=== PATIENT | male | born 1960 | race Caucasian/White ===

== ENCOUNTER 2016-03-03 10:05 | Emergency (ER) | payer MEDICARE, MEDICAID ==
[2016-03-03 10:30] VITALS: BP 129/86
--- NOTE | 2016-03-03 11:37 | UC ---
Skin Complaint HPI - HPI Summary HPI Summary: patient was treated with hydrocortisone for a contact dermatitis on his abdomen. it has improved but not gone away. it started when he switched body wash. - History of Current Complaint Chief Complaint: UCRash Time Seen by Provider: 03/03/16 11:25 Stated Complaint: RASH Hx Obtained From: Patient Onset/Duration: Gradual Onset, Lasting Days Skin Exposure Onset/Duration: Weeks Ago Timing: Constant Onset Severity: Mild Current Severity: Mild Pain Intensity: 4 Pain Scale Used: 0-10 Numeric Location: Discrete - abdomen Character: Pruritus, Hives, Redness, Raised Aggravating: Nothing Alleviating: Nothing Associated Signs & Symptoms: Positive: Negative Related History: Possible Reaction to: Environmental Exposure - Allergy/Home Medications Allergies/Adverse Reactions: Allergies Allergy/AdvReac Type Severity Reaction Status Date / Time No Known Allergies Allergy Verified 03/03/16 10:30 Home Medications: Home Medications Dasatinib [Sprycel] 100 mg PO DAILY 03/03/16 [History Confirmed 03/03/16] Review of Systems Constitutional: Negative Skin: Rash Eyes: Negative ENT: Negative Respiratory: Negative Cardiovascular: Negative Gastrointestinal: Negative Genitourinary: Negative Motor: Negative Neurovascular: Negative Musculoskeletal: Negative Neurological: Negative Psychological: Negative All Other Systems Reviewed And Are Negative: Yes PMH/Surg Hx/FS Hx/Imm Hx Previously Healthy: Yes - Surgical History Surgical History: None - Family History Known Family History: Positive: Blood Disorder - leukemia - Social History Alcohol Use: None Substance Use Type: None Smoking Status (MU): Never Smoked Tobacco Physical Exam Triage Information Reviewed: Yes Appearance: No Pain Distress, Well-Nourished, Pain Distress Vital Signs: Initial Vital Signs Temp 98.9 F 03/03/16 10:22 Pulse 81 03/03/16 10:22 Resp 16 03/03/16 10:22 BP 129/86 03/03/16 10:22 Pulse Ox 99 03/03/16 10:22 Vital Signs Reviewed: Yes Eye Exam: Normal Eyes: Positive: Conjunctiva Clear ENT Exam: Normal ENT: Positive: Normal ENT inspection, Pharynx normal, TMs normal Dental Exam: Normal Neck exam: Normal Neck: Positive: Supple, Nontender, No Lymphadenopathy Respiratory Exam: Normal Respiratory: Positive: Chest non-tender, Lungs clear, Normal breath sounds Cardiovascular Exam: Normal Cardiovascular: Positive: RRR, No Murmur, Pulses Normal Abdominal Exam: Normal Abdomen Description: Positive: Nontender, No Organomegaly, Soft Bowel Sounds: Positive: Present Musculoskeletal Exam: Normal Musculoskeletal: Positive: Strength Intact, ROM Intact, No Edema Neurological Exam: Normal Neurological: Positive: Alert Psychological Exam: Normal Skin: Positive: rashes - red raised area on abdomen Course/Dx - Course Course Of Treatment: history obtained, exam performed, medication reviewed, medication prescribed. - Differential Diagnoses - Skin Complaint Differential Diagnoses: Cellulitis, Contact Dermatitis, Urticaria - Diagnoses Provider Diagnoses: contact dermatitis Discharge - Discharge Plan Condition: Stable Disposition: HOME Patient Education Materials: Contact Dermatitis (ED)
== END 2016-03-03 11:41 | disposition home or self-care (01) ==
LOC: UCCORT 10:05
DX: L25.9 Unspecified contact dermatitis, unspecified cause (principal)
CPT/HCPCS: 99202; G0463

== ENCOUNTER 2016-03-31 20:57 | Emergency (ER) | payer MEDICARE, MEDICAID ==
[2016-03-31 21:14] VITALS: BP 158/87
[2016-03-31] MEDS ORDERED: Sulfamethox/Trimethoprim DS 800/160* TAB PO ONE (21:36)
--- NOTE | 2016-03-31 21:43 | UC ---
Skin Complaint HPI - HPI Summary HPI Summary: tender reddened area in suprapubic region. He has been battling an itchy rash on lower abdomen for hte past few months. Was seen here last month, dx contact dermatitis, Rx triamcinolone cream which did seem to help. Rash returned. It's itchy. Gradual worsening with redness and pain and swelling in suprapubic area. - History of Current Complaint Chief Complaint: UCRas Time Seen by Provider: 03/31/16 21:28 Stated Complaint: RASH Hx Obtained From: Patient Onset/Duration: Gradual Onset, Lasting Weeks - 1 Timing: Constant Onset Severity: Mild Current Severity: Moderate Location: Other - suprapubic Character: Swelling, Pain, Redness, Raised Aggravating: Touch Alleviating: Nothing Associated Signs & Symptoms: Positive: Negative - Allergy/Home Medications Allergies/Adverse Reactions: Allergies Allergy/AdvReac Type Severity Reaction Status Date / Time No Known Allergies Allergy Verified 03/31/16 21:14 Review of Systems Constitutional: Negative Skin: Rash - lower abdomen; worsened in suprapubic area and is now painful and red Eyes: Negative ENT: Negative Respiratory: Negative Cardiovascular: Negative Gastrointestinal: Negative Genitourinary: Negative Motor: Negative Neurovascular: Negative Musculoskeletal: Negative Neurological: Negative Psychological: Negative All Other Systems Reviewed And Are Negative: Yes PMH/Surg Hx/FS Hx/Imm Hx - Additional Past Medical History Additional PMH: chronic myeloid leukemia, in remission, on Sprycell for 2 years. Sees Oncologist at end of April - Surgical History Surgical History: None - Family History Known Family History: Positive: Hypertension, Blood Disorder - leukemia - Social History Occupation: Employed Full-time Lives: With Family Alcohol Use: None Substance Use Type: None Smoking Status (MU): Never Smoked Tobacco - Immunization History Most Recent Influenza Vaccination: none Physical Exam Triage Information Reviewed: Yes Appearance: Well-Appearing, No Pain Distress, Well-Nourished Vital Signs: Initial Vital Signs Temp 99.1 F 03/31/16 21:08 Pulse 90 03/31/16 21:08 Resp 18 03/31/16 21:08 BP 158/87 03/31/16 21:08 Pulse Ox 98 03/31/16 21:08 Vital Signs Reviewed: Yes Eye Exam: Normal ENT Exam: Normal Neck exam: Normal Respiratory Exam: Normal Cardiovascular Exam: Normal Musculoskeletal Exam: Normal Neurological Exam: Normal Psychological Exam: Normal Skin Exam: Other - dots of rash on lower abdomen, nondescript slightly raised red bumps. Indurated, red, hot, tender 3cm x 6 cm area suprapubic. No drainage. Course/Dx - Course Course Of Treatment: Sprycell has a common side effect of rash, asked to check with his Oncologist about whether his ongoing abdominal rash could be due to his Sprycell. The suprapubic area is consistent with cellulitis, but probably started from scratching this rash - Differential Diagnoses - Skin Complaint Differential Diagnoses: Cellulitis, Drug Rash - Diagnoses Provider Diagnoses: cellulitis Discharge - Discharge Plan Condition: Stable Disposition: HOME Prescriptions: Sulfamethox/Trimethoprim DS* [Bactrim DS 800/160 TAB*] 1 tab PO BID #20 tab Triamcinolone 0.1% OINT(NF) [Kenolog 0.1% OINT(NF)] 1 applic TOPICAL BID PRN #1 tube PRN Reason: Rash Patient Education Materials: Cellulitis (ED) Additional Instructions: You have a skin infection called "cellulitis". It is usually caused by Staph germs which get under the skin through a cut or open sore. It is likely that the rash you have had on your abdomen was the way the germs got under the skin. Sprycell has a very common side effect of rash. Please ask your Oncologist if the rash you have been experiencing could be due to the Sprycell.
== END 2016-03-31 21:49 | disposition home or self-care (01) ==
LOC: UCCORT 20:57
DX: L03.311 Cellulitis of abdominal wall (principal); C92.11 Chronic myeloid leukemia, BCR/ABL-positive, in remission
CPT/HCPCS: 99212; A9270-GY; G0463

== ENCOUNTER 2016-04-02 08:10 | Emergency (ER) | payer MEDICARE, MEDICAID ==
[2016-04-02 08:33] VITALS: BP 148/78
[2016-04-02] MEDS ORDERED: Ibuprofen TAB* 400 MG PO ONE (08:34)
--- NOTE | 2016-04-02 08:39 | UC ---
Skin Complaint HPI - HPI Summary HPI Summary: rash for a few days now developing abscess above penis. has been 2 days on Bactrim and rash and pain are worsening - History of Current Complaint Chief Complaint: UCRash Time Seen by Provider: 04/02/16 08:18 Stated Complaint: RASH RE-CHECK Hx Obtained From: Patient Onset/Duration: Sudden Onset, Lasting Days, Worse Since - yesterday Timing: Constant Onset Severity: Mild Current Severity: Moderate Pain Intensity: 7 Pain Scale Used: 0-10 Numeric Location: Discrete - lower abdomen/pubic area around penis Character: Swelling, Pain, Redness, Raised Aggravating: Touch Alleviating: Nothing Associated Signs & Symptoms: Positive: Tenderness - Allergy/Home Medications Allergies/Adverse Reactions: Allergies Allergy/AdvReac Type Severity Reaction Status Date / Time No Known Allergies Allergy Verified 04/02/16 08:29 Review of Systems Constitutional: Fever - 100.1 this am Skin: Rash - cellulitis developing abscess Eyes: Negative ENT: Negative Respiratory: Negative Cardiovascular: Negative Gastrointestinal: Negative Genitourinary: Negative Motor: Negative Neurovascular: Negative Musculoskeletal: Negative Neurological: Negative Psychological: Negative All Other Systems Reviewed And Are Negative: Yes PMH/Surg Hx/FS Hx/Imm Hx Previously Healthy: No - leukemia 2 years in remission, substance abuse disorder 30 years in remissi - Surgical History Surgical History: None - Family History Known Family History: Positive: Hypertension, Blood Disorder - leukemia - Social History Occupation: Unemployed Lives: With Family Alcohol Use: None Substance Use Type: None Smoking Status (MU): Former Smoker - Immunization History Most Recent Influenza Vaccination: none Physical Exam Triage Information Reviewed: Yes Appearance: Well-Appearing, Well-Nourished, Pain Distress - mild/moderate Vital Signs: Initial Vital Signs Temp 100.1 F 04/02/16 08:20 Pulse 98 04/02/16 08:20 Resp 18 04/02/16 08:20 BP 148/78 04/02/16 08:20 Vital Signs Reviewed: Yes Eye Exam: Normal Eyes: Positive: Conjunctiva Clear ENT Exam: Normal ENT: Positive: Normal ENT inspection, Hearing grossly normal. Negative: Nasal congestion, Nasal drainage, Trismus, Muffled/hoarse voice Neck exam: Normal Neck: Positive: Supple, Nontender Respiratory Exam: Normal Respiratory: Positive: Chest non-tender, No respiratory distress, No accessory muscle use Cardiovascular Exam: Normal Cardiovascular: Positive: RRR, Pulses Normal, Brisk Capillary Refill Musculoskeletal Exam: Normal Musculoskeletal: Positive: Strength Intact, ROM Intact, Edema @ - swelling erythema pubic area and lower abdomen Neurological Exam: Normal Neurological: Positive: Alert, Muscle Tone Normal Psychological Exam: Normal Skin: Positive: Other - cellulitis abscess as described Course/Dx - Course Course Of Treatment: to [facility] for higher level of care - Differential Diagnoses - Skin Complaint Differential Diagnoses: Abscess, Cellulitis - Diagnoses Provider Diagnoses: Cellulitis, adscess out patient treatment failure - Physician Notification/Consults Discussed Patient Care With: Ernestina FOY Time Discussed With Above Provider: 08:40 Instructed by Provider To: Transfer Discharge - Discharge Plan Condition: Fair Disposition: AGAINST MEDICAL ADVICE
[2016-04-02] MEDS ORDERED: Ibuprofen TAB* 400 MG ONE (08:47)
== END 2016-04-02 08:40 | disposition left against medical advice (07) ==
LOC: UCCORT 08:10
DX: L03.311 Cellulitis of abdominal wall (principal); C95.91 Leukemia, unspecified, in remission; Z87.891 Personal history of nicotine dependence; Z87.898 Personal history of other specified conditions
CPT/HCPCS: 99213; A9270-GY; G0463

== ENCOUNTER 2016-05-21 07:02 | Emergency (ER) | payer MEDICARE, MEDICAID ==
[2016-05-21 07:16] VITALS: BP 158/86
[2016-05-21] MEDS ORDERED: Albuterol 2.5 MG/3 ML NEB.SOL* (0.083%) INH ONE (07:20)
--- NOTE | 2016-05-21 07:27 | UC ---
Respiratory Complaint HPI - HPI Summary HPI Summary: Shortness of breath and tightness with inspiration since last night. Similar previous episodes when exposed to cats and has been at [employer] [facility] ([facility] ) for under two days. Patient has used albuterol with relief but ran out. Patient is retired. PCP Reji Malloy. Denies fevers, chills, chest pain, palpitations. Has had albuterol previously and it resolved symptoms. Has allergy to dogs, cats, horses. He returned from [place] recently and was not sure if any one was sick on plane. He states he had no shortness of breath until he was exposed to the cats last evening. Once he left the house his symptoms improved and essentially is here for albuterol refill. [ End ] - History of Current Complaint Chief Complaint: UCAllergicReaction Stated Complaint: ALLERGIC REACTION,TIGHT CHEST,SOB Time Seen by Provider: 05/21/16 07:10 Hx Obtained From: Patient Onset/Duration: Sudden Onset Timing: Constant Severity Initially: Mild Severity Currently: Mild Aggravating Factors: Allergens Alleviating Factors: Bronchodilator Associated Signs And Symptoms: Positive: Negative, Wheezing. Negative: Dyspnea , Fever, Chills, Hemoptysis, Dizziness, Calf Pain, Calf Swelling, Edema, URI - Risk Factors Pulmonary Embolism Risk Factors: Malignancy, Recent Travel - Allergies/Home Medications Allergies/Adverse Reactions: Allergies Allergy/AdvReac Type Severity Reaction Status Date / Time Cats Allergy Difficulty Uncoded 05/21/16 07:12 Breathing/Wheezing Hay Allergy Difficulty Uncoded 05/21/16 07:12 Breathing/Wheezing Home Medications: Home Medications Cetirizine* [ZyrTEC 10 MG TAB*] 10 mg PO DAILY 05/21/16 [History Confirmed 05/21] Olanzapine [Zyprexa Zydis 15 MG] 15 mg PO DAILY 05/21/16 [History Confirmed 04/07] Venlafaxine EXT RELEASE CAP* [Effexor Xr CAP*] 400 mg PO DAILY 05/21/16 [ History Confirmed 05/21/16] PMH/Surg Hx/FS Hx/Imm Hx Previously Healthy: Yes Endocrine History Of: Denies: Diabetes, Thyroid Disease Cardiovascular History Of: Denies: Cardiac Disorders, Congestive Heart Failure Respiratory History Of: Denies: Asthma, Pulmonary Embolism GI/ History Of: Denies: Gastroesophageal Reflux Psychological History Of: Reports: Anxiety, Depression Cancer History Of: Denies: Lung Cancer Other History Of: Negative For: HIV - Surgical History Surgical History: Yes Surgery Procedure, Year, and Place: Right Knee Arthroscopy Meniscus, 1998, [place] - Family History Known Family History: Positive: Hypertension, Blood Disorder - leukemia - Social History Occupation: Retired Lives: With Family Alcohol Use: None Substance Use Type: None Smoking Status (MU): Never Smoked Tobacco - Immunization History Most Recent Influenza Vaccination: Not the Season Review of Systems Constitutional: Negative Skin: Negative Eyes: Negative ENT: Negative Respiratory: Shortness Of Breath Cardiovascular: Negative Gastrointestinal: Negative Genitourinary: Negative Motor: Negative Neurovascular: Negative Musculoskeletal: Negative Neurological: Negative Psychological: Negative All Other Systems Reviewed And Are Negative: Yes Physical Exam Triage Information Reviewed: Yes Appearance: Well-Appearing, No Pain Distress, Well-Nourished Vital Signs: Initial Vital Signs Temp 98 F 05/21/16 07:09 Pulse 104 05/21/16 07:09 Resp 20 05/21/16 07:09 BP 158/86 05/21/16 07:09 Pulse Ox 98 05/21/16 07:09 Vital Signs Reviewed: Yes Eye Exam: Normal ENT Exam: Normal Dental Exam: Normal Neck exam: Normal Neck: Positive: 1 Respiratory Exam: Normal Respiratory: Positive: No respiratory distress, No accessory muscle use, Decreased breath sounds - b/l. Negative: Respiratory distress, Accessory muscle use Cardiovascular Exam: Normal Abdominal Exam: Normal Musculoskeletal Exam: Normal Musculoskeletal: Positive: Other: - negative Aviva's sign Neurological Exam: Normal Psychological Exam: Normal Skin Exam: Normal UC Diagnostic Evaluation - Laboratory O2 Sat by Pulse Oximetry: 98 Respiratory Course/Dx - Course Course Of Treatment: Given neb treatment to help with bronchidilation (pharmacy not open as of yet) and patient states improvement. Given refill of proair at this time) He is aware of SOB/[facility]/CP/palpitations start to go directly to ED) - Differential Dx/Diagnosis Differential Diagnosis/HQI/PQRI: Asthma, Lower Resp Infection Provider Diagnoses: Feline pet allergy Discharge - Discharge Plan Condition: Good Disposition: HOME Prescriptions: Albuterol HFA INHALER* [Ventolin HFA Inhaler*] 1 - 2 puff INH Q4H PRN #1 mdi PRN Reason: Shortness Of Breath Patient Education Materials: Allergies (ED) Referrals: Non Staff,Doctor [Primary Care Provider] - 3 Days (if symptoms not resolved )
== END 2016-05-21 07:57 | disposition home or self-care (01) ==
LOC: UCCORT 07:02
DX: J30.81 Allergic rhinitis due to animal (cat) (dog) hair and dander (principal)
CPT/HCPCS: 99212; G0463